=== PATIENT | female | born 1990 | race Caucasian/White ===

== ENCOUNTER 2019-07-26 20:28 | Emergency (ER) | payer BC ==
[~2019-07-26] VITALS: Ht 167.6 cm; Wt 104.3 kg
[2019-07-26 21:15] VITALS: BP 132/77
[2019-07-26] MEDS ORDERED: NAPROXEN 500 MG TABLET PO ONE (21:45)
[2019-07-26] MEDS ORDERED: DIPHTH,PERTUSS(ACELL),TET TOX 0.5 ML DISP.SYRIN. VAX IM ONE (22:15)
[2019-07-26] MEDS ORDERED: LIDOCAINE 1% PF 2 ML VIAL. INJ ONE (22:30)
--- NOTE | 2019-07-26 23:18 | PHYS DOC ---
Past Medical History Past Medical History: No Pertinent History Past Surgical History: Appendectomy, Other Additional Past Surgical Histo: Right ankle repair Alcohol Use: None Drug Use: None Adult General Chief Complaint Chief Complaint: LACERATION/AVULSION [facility] Patient is a 29 year old female who presents to the emergency department with complaints of a laceration to the volar surface of her left thumb between the DIP and the PIP. Patient states that she was using a box knife to cut carpet at work this evening when she accidentally cut her left thumb. Patient states she is right-handed. She is unsure when her last tetanus shot was. Patient denies any decreased range of motion, numbness, tingling, or weakness of the affected thumb. She currently rates her pain 8 out of 10 on the pain scale she denies any alleviating factors. All other ROS is neg unless otherwise noted in HPI. Review of Systems Review of Systems See Above Current Medications Current Medications Current Medications Medications (Trade) Dose Ordered Sig/Jorge Start Time Stop Time Status Last Admin Dose Admin Diphtheria/ Tetanus/Acell Pertussis (Boostrix) 0.5 ml ONCE ONCE 07/26/19 22:15 07/26/19 22:16 DC 07/26/19 22:16 0.5 ML Lidocaine HCl (Xylocaine-Mpf 1% 2ml Vial) 6 ml 1X ONCE 07/26/19 22:30 07/26/19 22:32 DC 07/26/19 22:37 6 ML Naproxen (Naprosyn) 500 mg 1X ONCE 07/26/19 21:45 07/26/19 21:46 DC 07/26/19 21:43 500 MG Allergies Allergies Allergies Coded Allergies Type Severity Reaction Last Updated Verified Penicillins Allergy Unknown rash 07/26/19 Yes amoxicillin Allergy Unknown rash 07/26/19 Yes Physical Exam Physical Exam See Above Constitutional: Well developed, well nourished, no acute distress, non-toxic appearance. [] HENT: Normocephalic, atraumatic, bilateral external ears normal, nose normal. [] Eyes: PERRLA, EOMI, conjunctiva normal, no discharge. [] Neck: Normal range of motion, no stridor. [] Cardiovascular:Heart rate regular rhythm Lungs & Thorax: Respirations even and unlabored, no retractions, no respiratory distress Skin: Warm, dry, no erythema, no rash; 3 cm laceration between the DIP and the PIP of the left thumb, bleeding controlled with pressure dressing that is in place.. [] Extremities: L thumb: No cyanosis, no clubbing, ROM intact, no edema, full extension and flexion [] Neurologic: Alert and oriented X 3, no focal deficits noted. [] Psychologic: Affect normal, judgement normal, mood normal. [] Current Patient Data Vital Signs Vital Signs Date Time Temp Pulse Resp B/P (MAP) Pulse Ox O2 Delivery O2 Flow Rate FiO2 07/26/19 21:15 98.1 92 15 132/77 (95) 98 Room Air 98.1 EKG EKG [] Radiology/Procedures Radiology/Procedures Laceration Repair by me: Anesthesia: 1% lidocaine locally Location: Left thumb Tendon/Joint/Nerves: No injury Foreign body: None detected after copious irrigation and exploration with 250 mls of normal saline Technique: 8 Simple Interrupted Sutures with 4-0 Ethilon Complexity: No subcutaneous sutures/mucosal repair/edge excision Post Closure Length: 3.5 cm Patient's bleeding was easily controlled in the department and there is no indication of anemia. No evidence of compartment syndrome, neurologic injury, vascular injury, open joint, tendon laceration, or foreign body. Patient is appropriate for outpatient follow up. Scar minimization instructions given.[] Course & Med Decision Making Course & Med Decision Making Pertinent Labs and Imaging studies reviewed. (See chart for details) Patient is a 29-year-old female who presented to the emergency department with complaints of a laceration to her left thumb. The wound was cleansed and repaired as documented above and procedures. Patient was given a DTaP and naproxen in the emergency department. A prescription was written for Keflex 500 mg by mouth 3 times a day 7 days. Patient was instructed to take Tylenol or ibuprofen as needed for pain. An aluminum finger splint was applied to the th umb. Patient was instructed to wear the aluminum finger splint until sutures are removed in 14 days. Follow-up with her primary care doctor when she returns back home to [place] to have the sutures removed. Patient verbalized an understanding of home care, medications, follow-up, and return to ED instructions and was in agreement with the plan of care. [] Dragon Disclaimer Dragon Disclaimer This electronic medical record was generated, in whole or in part, using a voice recognition dictation system. Departure Departure Impression: Primary Impression: Laceration of left thumb without foreign body without damage to nail Additional Impression: Need for Tdap vaccination Disposition: 01 HOME, SELF-CARE Condition: STABLE Referrals: NO PCP (PCP) Patient Instructions: Laceration Care, Adult, [id number], VIS, Tetanus, Diphtheria (Td); Tetanus, Diphtheria, Pertussis (Tdap) - [facility] Additional Instructions: Keep the area clean and dry. You may take Tylenol or ibuprofen as needed for pain. Keep the dressing that was placed today on for 24 hours then change the dressing twice a day and apply antibiotic ointment to the area. Wear the aluminum finger splint that was applied until sutures been removed. Follow-up with your primary care doctor 14 days to have the sutures removed, sooner if you develop signs of infection including: redness, warmth, drainage, or a fever. Scripts Clindamycin Hcl (CLINDAMYCIN HCL) 150 Mg Capsule 450 MG PO TID for 7 Days, #63 CAP 0 Refills Prov: ANSHU PÉREZ APRN 07/26/19 Splinting Splinting : Location: L thumb Pre-Made Type: metal (aluminum finger splint) Pre-Proc Neuro Vasc Exam: normal Post-Proc Neuro Vasc Exam: normal, unchanged from pre-exam Problem Qualifiers Primary Impression: Laceration of left thumb without foreign body without damage to nail Encounter type: initial encounter Qualified Codes: S61.012A - Laceration without foreign body of left thumb without damage to nail, initial encounter ANSHU PÉREZ APRN Jul 26, 2019 23:18
[2019-07-26] MEDS ORDERED: CEPH-264 PO (23:20)
[2019-07-26] MEDS ORDERED: CLIN150C14 PO (23:24)
== END 2019-07-26 23:28 | disposition home or self-care (01) ==
LOC: ER 20:28
DX: S61.012A Laceration without foreign body of left thumb without damage to nail, initial encounter (principal); Z90.49 Acquired absence of other specified parts of digestive tract; Z98.890 Other specified postprocedural states; Z88.0 Allergy status to penicillin; Z88.1 Allergy status to other antibiotic agents; W26.0XXA Contact with knife, initial encounter; Y93.89 Activity, other specified; Y92.89 Other specified places as the place of occurrence of the external cause; Y99.8 Other external cause status
CPT/HCPCS: 12002; 90471; 90715; 99283